=== PATIENT | female | born 1950 | race Caucasian/White ===

== ENCOUNTER 2019-04-27 10:56 | Emergency (ER) | payer OTHER ==
[~2019-04-27] VITALS: Ht 154.9 cm; Wt 61.2 kg
[2019-04-27] MEDS ORDERED: VOLTAREN100 GM (11:18)
[2019-04-27] MEDS ORDERED: NORFLEX (11:18)
== END 2019-04-27 14:40 | disposition home or self-care (01) ==
LOC: ER 10:56
DX: M75.31 Calcific tendinitis of right shoulder (principal)